=== PATIENT | female | born 1945 | race Caucasian/White ===

== ENCOUNTER 2023-11-22 06:09 | Day surgery (SDC) | payer MEDICARE, OTHER ==
[2023-11-14 11:17] VITALS: BMI 31.0
[2023-11-22] MEDS ORDERED: MIDAZOLAM HCL 2 MG/2 ML SINGLE DOSE VIAL ONE (07:19)
[2023-11-22] MEDS ORDERED: ACETAMINOPHEN INJECTION 100 ML IVPB ONE (07:20)
[2023-11-22] MEDS ORDERED: IBUPROFEN 800 MG/8 ML IJ IVPB ONE (07:20)
[2023-11-22] MEDS ORDERED: BUPIVACAINE LIPOSOME/PF (EXPAREL) 266 MG/20 ML VIAL ONE (07:33)
[2023-11-22] MEDS ORDERED: PROPOFOL 60 ML ONE (07:51)
[2023-11-22] MEDS ORDERED: ONDANSETRON 4 MG/2 ML VIAL IVPUSH PRN ×2 (10:14→10:36)
[2023-11-22] MEDS ORDERED: HYDROmorphone HCL/PF 1 MG/ML VIAL IVPUSH PRN (10:15)
[2023-11-22] MEDS ORDERED: MAGNESIUM HYDROX 2400MG/30ML ORAL SUSPENSION 30 ML CUP PO PRN (10:36)
[2023-11-22] MEDS ORDERED: MAG HYDROX/AL HYDROX/SIMETH 30 ML UNIT-DOSE CUP PO PRN (10:36)
[2023-11-22] MEDS ORDERED: ALPRAZOLAM 0.5 MG PO PRN (10:42)
[2023-11-22] MEDS ORDERED: ACETAMINOPHEN 1000 MG/100 ML BAG IVPB SCH (10:45)
[2023-11-22] MEDS ORDERED: SODIUM CHLORIDE 1,000 ML IV SCH (11:00)
[2023-11-22] MEDS: oxyCODONE HCL 5 MG TABLET PO PRN ×2 (14:45→18:59)
[2023-11-22 14:55] VITALS: RESP 18
[2023-11-22] MEDS: ACETAMINOPHEN 1000 MG/100 ML BAG IVPB SCH (17:04)
[2023-11-22] MEDS: CEFAZOLIN SODIUM 2 GM in DEXTROSE 5%-WATER 100 ML IVPB SCH (17:08)
[2023-11-22] MEDS: TRANEXAMIC ACID 1000 MG/10 ML VIAL IVPUSH ONE (18:17)
[2023-11-22] MEDS: SENNOSIDES/DOCUSATE COMBO (SENNA PLUS) TABLET (UD) PO SCH (21:02)
[2023-11-22] MEDS: traZODone HCL 50 MG TABLET (FP) PO SCH (21:02)
[2023-11-22] MEDS: CITALOPRAM HYDROBROMIDE 20 MG TABLET PO SCH (21:02)
[2023-11-22] MEDS: DEXAMETHASONE 4 MG TABLET (FP) PO SCH (21:02)
[2023-11-22] MEDS: TRANEXAMIC ACID - 1,000 MG in SODIUM CHLORIDE 50 ML IVPB SCH (21:02)
[2023-11-22] MEDS: ASPIRIN 81 MG CHEWABLE TABLETS PO SCH (21:02)
[2023-11-22] MEDS: FAMOTIDINE 20 MG TABLET PO SCH (21:02)
[2023-11-22] MEDS: CELECOXIB 100 MG CAPSULE PO SCH (21:03)
[2023-11-22] MEDS: ALPRAZolam 0.25 MG TABLET PO PRN (21:04)
[2023-11-22] MEDS ORDERED: FAMOTIDINE 20 MG TABLET PO SCH (22:00)
[2023-11-22] MEDS ORDERED: TRANEXAMIC ACID 1000 MG/10 ML VIAL IVPUSH SCH (22:00)
[2023-11-22] MEDS ORDERED: oxyCODONE HCL 10 MG SUSTAINED ACTING TABLET PO SCH (22:00)
[2023-11-23] MEDS: LACTATED RINGERS SOLUTION 1,000 ML IV SCH (08:38)
[2023-11-23] MEDS: BUDESONIDE/FORMETEROL FUMARATE 160/4.5 mcg INHALER IH SCH (09:28)
[2023-11-23] MEDS: MULTIVITAMINS (DAILY MVI) TABLET (FP) PO SCH (10:46)
[2023-11-23] MEDS: amLODIPine BESYLATE 5 MG TABLET (FP) PO SCH (10:46)
[2023-11-23] MEDS: PANTOPRAZOLE 40 MG TABLET PO SCH (10:46)
[2023-11-23] MEDS: ACETAMINOPHEN 500 MG TABLET (FP) PO SCH (11:20)
[2023-11-23 14:53] VITALS: BP 123/59; PULSE 74; TEMP 98
== END 2023-11-23 16:45 | disposition home or self-care (01) ==
LOC: FASUSAT 06:09 → FM/S 11:43 → FASUSAT 11-23 16:45
PROVIDERS: ATTEND Orthopaedic Surgery
PROC: 0SRC0J9 Replacement of Right Knee Joint with Synthetic Substitute, Cemented, Open Approach (ICD-10-PCS; principal; 2023-11-22 08:22)
DX: M17.11 Unilateral primary osteoarthritis, right knee (principal)
CPT/HCPCS: 27447; C1776; 73560-TC-RT-FY; 94760; 97010-GP; 97116-GP; 97162-GP; C1889; J0131